=== PATIENT | female | born 1980 | race Caucasian/White ===

== ENCOUNTER 2023-06-29 14:10 | Emergency (ER) | payer OTHER, SELFPAY ==
[2023-06-29 14:24] VITALS: BP 106/73; PULSE 102; TEMP 36.9; O2SAT 98; BMI 19.3
--- NOTE | 2023-06-29 14:29 | US_ITS ---
The [address] [address] Patient Name: FAUSTINO DANIEL MRN: [id number] date: 1980 Sex: F Assigned Patient Location: ER Current Patient Location: ER Accession/Order Number: [id number] Exam Date: 06/29/2023 14:32 Report Date: 06/29/2023 15:19 At the request of: TAINA CONWAY Procedure: US venous doppler LE RT EXAMINATION: US venous doppler LE RT HISTORY: DVT COMPARISON: None. TECHNIQUE: Venous duplex examination performed using B-mode, color flow and spectral analysis. FINDINGS: Partially compressible right femoral vein, patent color flow within the femoral vein and there is suggestion of thickening along the wall. Right common femoral, and popliteal veins are patent by color flow evaluation and galeano scale imaging with compressibility. Visualized portions of the right posterior tibial and peroneal veins are compressible with color flow. US/US venous doppler LE RT IMPRESSION: Positive for right femoral vein DVT changes, however this may be subacute or chronic. Electronically authenticated by: BETTIE UGARTE Date: 06/29/2023 15:19
--- NOTE | 2023-06-29 14:41 | ED.EXTPRO1 ---
HPI - Extremity Problem General Chief complaint: Extremity Problem, Nontraumatic Stated complaint: LOWER EXTREMINITY PAIN, RIGHT Time Seen by Provider: 06/29/23 14:29 Source: patient History of Present Illness HPI Narrative: Patient is a 43-year-old female who presents to the emergency department for right lower extremity pain and swelling that began today. She is currently at a local drug and alcohol treatment facility for opioid addiction and is taking Suboxone. She has been sober for 28 days. She states she was diagnosed with DVT and PE 2 years ago at [facility] but she refused to stay so she was never treated with anticoagulation. She states today she had a return of swelling. She has no significant pain at this time. No redness or drainage from the area. She is not concerned for . No fevers or vomiting. She has no chest pain or shortness of breath. Related Data Previous Rx's ?Medication ?Instructions ?Recorded rivaroxaban 15 mg (42)-20 mg (9) See Rx Instructions PO .COMPLEX 06/29/23 tablets in a starter pack (Xarelto #51 ea DVT-PE Treatment 30-Day Starter) Allergies Allergy/AdvReac Type Severity Reaction Status Date / Time lamotrigine [From Lamictal] Allergy Verified 06/29/23 14:24 Review of Systems ROS Constitutional Denies: fever or chills Ears, nose, mouth, and throat Denies: throat pain or nasal congestion Cardiovascular Denies: chest pain Respiratory Denies: shortness of breath or cough Gastrointestinal Denies: nausea or vomiting Integumentary/Breast Denies: rash Neurological Denies: headache Hematologic/Lymphatic Denies: easy bruising or easy bleeding Exam Narrative Exam Narrative: Gen.: Awake, alert, in no distress Head: Normocephalic, atraumatic ENT: Moist mucous membranes Respiratory: No respiratory distress Extremities: Right lower extremity is edematous at the ankle, right posterior calf is soft, nontender Psych: Normal mood and affect Neuro: No focal neuro deficit Skin: Warm, dry, intact Constitutional Vital Signs, click to edit/add: Last Vital Signs Temp 98.4 F 06/29/23 14:24 Pulse 102 H 06/29/23 14:24 Resp 14 06/29/23 14:24 BP 106/73 06/29/23 14:24 Pulse Ox 98 06/29/23 14:24 O2 Del Method Room Air 06/29/23 14:24 Course Vital Signs Vital signs: Vital Signs Temperature 98.4 F 06/29/23 14:24 Pulse Rate 102 H 06/29/23 14:24 Respiratory Rate 14 06/29/23 14:24 Blood Pressure 106/73 06/29/23 14:24 Pulse Oximetry 98 06/29/23 14:24 Oxygen Delivery Method Room Air 06/29/23 14:24 Temperature 98.4 F 06/29/23 14:24 Pulse Rate 102 H 06/29/23 14:24 Respiratory Rate 14 06/29/23 14:24 Blood Pressure 106/73 06/29/23 14:24 Pulse Oximetry 98 06/29/23 14:24 Oxygen Delivery Method Room Air 06/29/23 14:24 MDM - Extremity (Nontraumatic) MDM Narrative Medical decision making narrative: Ultrasound shows chronic DVT to the right lower extremity in the femoral vein. Patient is neurovascularly intact with no complaints of chest pain or shortness of breath. I discussed the case with Dr. uW for vascular, he recommended initiating anticoagulation and outpatient follow-up. Patient is referred to his clinic next week for follow-up and return to the ER if symptoms change or worsen. Medical Records Attestation: I reviewed the patient's medical records. Imaging Data Venous US: Attestation: I have reviewed the pertinent imaging results. Radiologist's impression: ITS Impressions Venous Doppler Study 06/29/23 14:29 IMPRESSION: Positive for right femoral vein DVT changes, however this may be subacute or chronic. Electronically authenticated by: BETTIE UGARTE Date: 06/29/2023 15:19 Discharge Plan Discharge Stand Alone Forms: Portal Instructions Chief Complaint: Extremity Problem, Nontraumatic Clinical Impression: Chronic deep vein thrombosis (DVT) of femoral vein of right lower extremity Patient Disposition: Home, Self-Care Time of Disposition Decision: 15:39 Condition: Good Prescriptions / Home Meds: New Xarelto DVT-PE Treat 30d Start 15 mg (42)- 20 mg (9) tablets,dose pack See Rx Instructions .ROUTE .COMPLEX Qty: 51 0RF Rx Instructions: take one-15 mg tablet twice daily for 21 days, then one-20 mg tablet once daily; must take with meal/food Print Language: Croatian Instructions: Deep Vein Thrombosis (ED) Referrals: Physician,Non-Staff, [Primary Care Provider] - 1 week
== END 2023-06-29 17:01 | disposition home or self-care (01) ==
PROVIDERS: Emergency Provider Emergency Medicine Emergency Medical Services
DX: I82.511 Chronic embolism and thrombosis of right femoral vein (principal); F11.20 Opioid dependence, uncomplicated; Z86.711 Personal history of pulmonary embolism
CPT/HCPCS: 93971; 99284